=== PATIENT | female | born 1945 ===

== ENCOUNTER 2021-02-23 10:00 | Inpatient (IN) | payer OTHER ==
[~2021-02-23] VITALS: Ht 157.5 cm; Wt 72.6 kg
[2021-02-23] MEDS ORDERED: ALTACE10 MG PO (10:59)
[2021-03-04] MEDS ORDERED: OMEPRAZOLE MAGN20 MG PO (16:11)
[2021-03-04] MEDS ORDERED: PERCOCET 5-3251 EACH PO (16:11)
== END 2021-03-04 17:57 | disposition home or self-care (01) | DRG 330 ==
LOC: O/R 03-01 07:32 → SURH 03-01 07:32
PROVIDERS: ADMIT Surgery; ATTEND Surgery
PROC: 0D1B4Z4 Bypass Ileum to Cutaneous, Percutaneous Endoscopic Approach (ICD-10-PCS; principal; 2021-03-01 11:00)
DX: C18.7 Malignant neoplasm of sigmoid colon (principal); C78.6 Secondary malignant neoplasm of retroperitoneum and peritoneum; R59.0 Localized enlarged lymph nodes; I10 Essential (primary) hypertension

== ENCOUNTER 2021-04-08 06:58 | Day surgery (SDC) | payer OTHER ==
[~2021-04-08 06:58] MED LIST: ALTACE10 MG PO; OMEPRAZOLE MAGN20 MG PO; PERCOCET 5-3251 EACH PO
[2021-04-08] MEDS ORDERED: PERCOCET 5-3251 EACH PO (10:06)
== END 2021-04-08 12:00 | disposition home or self-care (01) ==
LOC: CIR.AMB 06:58
PROVIDERS: ATTEND Surgery
DX: C18.7 Malignant neoplasm of sigmoid colon (principal); Z20.822 Contact with and (suspected) exposure to COVID-19
CPT/HCPCS: 36561; C1751

== ENCOUNTER 2021-04-22 10:41 | Emergency (ER) | payer OTHER ==
[~2021-04-22] VITALS: Ht 157.5 cm; Wt 65.8 kg
== END 2021-04-22 13:06 | disposition home or self-care (01) ==
LOC: ER 10:41
DX: G89.18 Other acute postprocedural pain (principal); L53.8 Other specified erythematous conditions; K94.19 Other complications of enterostomy; Z03.818 Encounter for observation for suspected exposure to other biological agents ruled out

== ENCOUNTER 2021-07-04 06:00 | Day surgery (SDC) | payer OTHER | END 2021-07-04 12:15 | disposition home or self-care (01) | LOC: AMB-ENDOS 06:00 | PROVIDERS: ATTEND Surgery | DX: K62.89 Other specified diseases of anus and rectum (principal); Z20.822 Contact with and (suspected) exposure to COVID-19 ==